=== PATIENT | female | born 1990 | race Two or more races ===

== ENCOUNTER 2018-08-31 00:43 | Emergency (ER) | payer SELFPAY ==
[2018-08-31 01:01] VITALS: BP 148/97; PULSE 75; TEMP 97.4; BMI 29.2
--- NOTE | 2018-08-31 02:29 | PDOC ---
*Physical Exam - Vital Signs Last Vital Signs Temp Pulse Resp BP Pulse Ox 97.4 F L 75 20 148/97 99 08/31/18 00:56 08/31/18 00:56 08/31/18 00:56 08/31/18 00:56 08/31/18 00:56 Medical Decision Making - Medical Decision Making 08/31/18 02:28 Patient seen by the advanced practice provider under my direct supervision. Ancillary testing reviewed as necessary. I agree with plan as outlined by the advanced practice provider. *DC/Admit/Observation/Transfer Diagnosis at time of Disposition: Otitis media Qualifiers: Otitis media type: suppurative Chronicity: acute Laterality: right Recurrence: non-recurrent Spontaneous tympanic membrane rupture: without spontaneous rupture Qualified Code(s): H66.001 - Acute suppurative otitis media without spontaneous rupture of ear drum, right ear - Discharge Dispostion Disposition: HOME - Prescriptions Prescriptions: Amoxicillin/Potassium Clav [Augmentin 875-125 Tablet] 1 each PO BID #20 tablet - Referrals - Patient Instructions Printed Discharge Instructions: Middle Ear Infection Additional Instructions: You may take ibuprofen every 6 hours as needed for pain Take Augmentin as prescribed Follow-up with your doctor in 2 days Return to the emergency room if symptoms worsen. - Post Discharge Activity Forms/Work/School Notes: Back to Work
[2018-08-31] MEDS ORDERED: IBUPROFEN 400 MG TABLET (FP) PO ONE ×2 (02:32→03:08)
--- NOTE | 2018-08-31 02:32 | PDOC ---
History of Present Illness - General Chief Complaint: Ear Problem Stated Complaint: EAR PAIN & SORETHROAT Time Seen by Provider: 08/31/18 02:23 History Source: Patient - History of Present Illness Initial Comments: 08/31/18 02:48 28 year old Complaining of right ear pain and throat pain started today. patient has been having URI symptoms for the last 5 days.Denies fevers/chills, nasal congestion, cough, nausea, vomiting, diarrhea, patient reports that she just came back from vacation and has been swimming in the pool. No past medical history 08/31/18 02:59 Past History - Past Medical History Allergies/Adverse Reactions: Allergies Allergy/AdvReac Type Severity Reaction Status Date / Time No Known Allergies Allergy Verified 06/07/12 17:09 Home Medications: Ambulatory Orders Diphenhydramine [Benadryl] 50 mg PO Q8H #30 capsule 06/07/12 EPINEPHrine (EPI-PEN 0.3MG) [Epipen 0.3MG -] 0.3 mg IM ASDIR #2 pens 06/07/12 Fexofenadine HCl 180 mg PO DAILY #30 tablet 06/07/12 Ranitidine HCl [Zantac] 150 mg PO DAILY #30 tablet 06/07/12 Amoxicillin/Potassium Clav [Augmentin 875-125 Tablet] 1 each PO BID #20 tablet 08/31/18 Ibuprofen 600 mg PO QID PRN #20 tablet 08/31/18 - Suicide/Smoking/Psychosocial Hx Smoking Status: No Smoking History: Never smoked Number of Cigarettes Smoked Daily: 0 Information on smoking cessation initiated: No Hx Alcohol Use: Yes (Social) Drug/Substance Use Hx: No Review of Systems - Review of Systems Able to Perform ROS?: Yes Is the patient limited Turkmen proficient: No HEENTM: Yes: Ear Pain, Throat Pain *Physical Exam - Vital Signs Last Vital Signs Temp Pulse Resp BP Pulse Ox 97.4 F L 75 20 148/97 99 08/31/18 00:56 08/31/18 00:56 08/31/18 00:56 08/31/18 00:56 08/31/18 00:56 - Physical Exam General Appearance: Yes: Appropriately Dressed HEENT: positive: Pharynx Normal, TM Bulging (with effusion and erythema to right tm) Neck: negative: Lymphadenopathy (R), Lymphadenopathy (L) Respiratory/Chest: positive: Lungs Clear, Normal Breath Sounds Musculoskeletal: positive: Normal Inspection Extremity: positive: Normal Capillary Refill, Normal Inspection, Normal Range of Motion Integumentary: positive: Normal Color, Dry, Warm Neurologic: positive: Fully Oriented, Alert, Normal Mood/Affect Moderate Sedation - Procedure Monitoring Vital Signs: Procedure Monitoring Vital Signs Temperature 97.4 F L 08/31/18 00:56 Pulse Rate 75 08/31/18 00:56 Respiratory Rate 20 08/31/18 00:56 Blood Pressure 148/97 08/31/18 00:56 O2 Sat by Pulse Oximetry (%) 99 08/31/18 00:56 Medical Decision Making - Medical Decision Making 08/31/18 02:57 Otitis media: p: Pain control Antibiotics *DC/Admit/Observation/Transfer Diagnosis at time of Disposition: Otitis media Qualifiers: Otitis media type: suppurative Chronicity: acute Laterality: right Recurrence: non-recurrent Spontaneous tympanic membrane rupture: without spontaneous rupture Qualified Code(s): H66.001 - Acute suppurative otitis media without spontaneous rupture of ear drum, right ear - Discharge Dispostion Disposition: HOME - Prescriptions Prescriptions: Amoxicillin/Potassium Clav [Augmentin 875-125 Tablet] 1 each PO BID #20 tablet Ibuprofen 600 mg PO QID PRN #20 tablet PRN Reason: Pain - Referrals - Patient Instructions Printed Discharge Instructions: Middle Ear Infection Additional Instructions: You may take ibuprofen every 6 hours as needed for pain Take Augmentin as prescribed Follow-up with your doctor in 2 days Return to the emergency room if symptoms worsen. - Post Discharge Activity Forms/Work/School Notes: Back to Work
[2018-08-31] MEDS ORDERED: AMOX TR/POT CLAV 875MG/125MG TABLETS (FP) PO ONE (02:33)
[2018-08-31] MEDS ORDERED: AMOX TR/POT CLAV 875MG/125MG TABLETS (FP) ONE (03:07)
== END 2018-08-31 03:24 | disposition home or self-care (01) ==
LOC: JER 00:43
DX: H66.001 Acute suppurative otitis media without spontaneous rupture of ear drum, right ear (principal)
CPT/HCPCS: 99281-25

== ENCOUNTER 2019-04-09 23:07 | Emergency (ER) | payer OTHER ==
[2019-04-09 23:14] VITALS: BMI 27.8
[2019-04-09] MEDS ORDERED: hydrOXYzine HCL 25 MG TABLET (FP) PO ONE (23:35)
--- NOTE | 2019-04-09 23:41 | PDOC ---
History of Present Illness - General Chief Complaint: Allergic Reaction Stated Complaint: ALLERGY Time Seen by Provider: 04/09/19 23:22 History Source: Patient Exam Limitations: No Limitations - History of Present Illness Initial Comments: 04/09/19 23:41 HISTORY OF PRESENT ILLNESS: This is a 28-year-old woman past medical history of urticaria presents emergency department for evaluation of wheals present to bilateral arms for the past 2 days. Patient has been taking Swathi with minimal relief of symptoms. Patient has been in contact with an auto body repairman and has an appointment on of this week. Patient denies any throat itching or difficulty breathing. No recent travel or sick contacts. PAST MEDICAL HISTORY: urticaria SURGICAL HISTORY: Denies ALLERGIES: No known drug allergies REVIEW OF SYSTEMS General/Constitutional: Denies fever or chills. Denies weakness, weight change. HEENT: Denies change in vision. Denies ear pain or discharge. Denies sore throat. Cardiovascular: Denies chest pain or shortness of breath. Respiratory: Denies cough, wheezing, or hemoptysis. Gastrointestinal: Denies nausea, vomiting, diarrhea or constipation. Denies rectal bleeding. Genitourinary: Denies dysuria, frequency, or change in urination. Musculoskeletal: Denies joint or muscle swelling or pain. Denies neck or back pain. Skin and breasts: see HPI Neurologic: Denies headache, vertigo, loss of consciousness, or loss of sensation. Psychiatric: Denies depression or anxiety. Endocrine: Denies increased thirst. Denies abnormal weight change. Hematologic/Lymphatic: Denies anemia, easy bleeding, or history of blood clots. Allergic/Immunologic: Denies hives or skin allergy. Denies latex allergy. PHYSICAL EXAM General Appearance: Well-appearing, appropriately dressed. No apparent distress , no intoxication. HEENT: EOMI, PERRLA, normal ENT inspection, normal voice, TMs normal, pharynx normal. No conjunctival pallor. No photophobia, scleral icterus. Neck: Supple. Trachea midline. No tenderness, rigidity, carotid bruit, stridor , lymphadenopathy, or thyromegaly. Respiratory/Chest: Lungs CTAB. No shortness of breath, chest tenderness, respiratory distress, accessory muscle use. No crackles, rales, rhonchi, stridor , wheezing, dullness Cardiovascular: RRR. S1, S2. No JVD, murmur, bradycardia, tachycardia. Integumentary: Wheals present to b/l upper extremities worse over shoulders. Neurologic: lifts and cranes inspector II-XII intact. Fully oriented, alert. Appropriate mood/affect. Motor strength 5/5. No appreciable EOM palsy, facial droop or sensory deficit. Past History - Past Medical History Allergies/Adverse Reactions: Allergies Allergy/AdvReac Type Severity Reaction Status Date / Time No Known Allergies Allergy Verified 06/07/12 17:09 Home Medications: Ambulatory Orders Diphenhydramine [Benadryl] 50 mg PO Q8H #30 capsule 06/07/12 EPINEPHrine (EPI-PEN 0.3MG) [Epipen 0.3MG -] 0.3 mg IM ASDIR #2 pens 06/07/12 Fexofenadine HCl 180 mg PO DAILY #30 tablet 06/07/12 Ranitidine HCl [Zantac] 150 mg PO DAILY #30 tablet 06/07/12 Amoxicillin/Potassium Clav [Augmentin 875-125 Tablet] 1 each PO BID #20 tablet 08/31/18 Ibuprofen 600 mg PO QID PRN #20 tablet 08/31/18 Triamcinolone 0.5% Ointment [Aristocort 0.5% Ointment -] 1 applic TP BID #1 tube 04/09/19 - Psycho Social/Smoking Cessation Hx Smoking Status: No Smoking History: Never smoked Number of Cigarettes Smoked Daily: 0 Hx Alcohol Use: Yes ("Ocasional") Drug/Substance Use Hx: No *Physical Exam - Vital Signs Last Vital Signs Temp Pulse Resp BP Pulse Ox 97.4 F L 88 20 130/74 97 04/09/19 23:09 04/09/19 23:09 04/09/19 23:09 04/09/19 23:09 04/09/19 23:09 Medical Decision Making - Medical Decision Making 04/09/19 23:43 A/P: 28-year-old woman with urticaria No stridor noted Oropharynx is unremarkable. No drooling present. Lungs clear to auscultation bilaterally. Hydroxyzine 25 mg orally now Discharge home with prescription for triamcinolone ointment We'll defer oral steroids given patient is to be evaluated by auto body repairman in less than 7 days. Patient has been given strict return precautions. I discussed the physical exam findings, ancillary test results and final diagnoses with the patient. I answered all of the patient's questions. The patient was satisfied with the care received and felt comfortable with the discharge plan and treatment plan. The patient will call their primary care physician within 24 hours to arrange follow-up and will return to the Emergency Department with any new, persistent or worsening symptoms. Portions of this note have been documented using voice recognition software. As a result, errors may occur in the farm implement engine mechanic process. Effort has been made to correct all grammatical and farm implement engine mechanic error, but some may have been missed. Discharge - Discharge Information Problems reviewed: Yes Clinical Impression/Diagnosis: Urticaria Condition: Stable Disposition: HOME - Admission No - Additional Discharge Information Prescriptions: Triamcinolone 0.5% Ointment [Aristocort 0.5% Ointment -] 1 applic TP BID #1 tube - Follow up/Referral - Patient Discharge Instructions Additional Instructions: Rest, keep cool and dry- avoid strenuous activity or hot /humid environments May use Benadryl at night for antihistamine, Zyrtec/ Swathi or Claritin for daytime antihistamine use to help with itching May use triamcinolone cream on all areas except face Return to the emergency department for any new or worsening symptoms. Make appointment with consulting senior practice director for evaluation when possible - Post Discharge Activity
[2019-04-10] MEDS ORDERED: hydrOXYzine HCL 25 MG TABLET (FP) PO ONE (00:13)
[2019-04-10 01:09] VITALS: BP 122/75; PULSE 82; TEMP 97.6
== END 2019-04-10 00:41 | disposition home or self-care (01) ==
LOC: JER 23:07
DX: L50.9 Urticaria, unspecified (principal)
CPT/HCPCS: 99282-25

== ENCOUNTER 2021-06-20 07:36 | Emergency (ER) | payer OTHER ==
[2021-06-20 07:56] VITALS: PULSE 89; BMI 27.8
[2021-06-20 09:26] LABS: HEMATOCRIT 34.8 % (32.4-45.2); MCH 29.6 pg (25.7-33.7); MCHC 34.6 g/dl (32.0-36.0); MEAN CELL VOLUME 85.5 fl (80-96); MEAN PLT VOLUME 7.1 fl (7.5-11.1); PLATELET COUNT 465 10^3/uL (134-434); RBC 4.07 M/mm3 (3.60-5.2); RDW 13.2 % (11.6-15.6); WHITE BLOOD COUNT 10.7 K/mm3 (4.0-10.0)
[2021-06-20 09:28] LABS: EPI CELLS 36 /uL (0-25.1); HYALINE CASTS 4 /uL (0-3.1); PH,URINE 5.5 (5.0-8.0); URINE APPEARANCE CLEAR; URINE BACTERIA 100 /uL (0-1359); URINE BILIRUBIN NEGATIVE (NEGATIVE); URINE COLOR YELLOW; URINE GLUCOSE (UA) NEGATIVE (NEGATIVE); URINE KETONE NEGATIVE (NEGATIVE); URINE LEUK ESTERASE NEGATIVE (NEGATIVE); URINE NITRITE NEGATIVE (NEGATIVE); URINE PROTEIN NEGATIVE (NEGATIVE); URINE RBC 21 /uL (0-23.9); URINE UROBILINOGEN 0.2 mg/dL (0.2-1.0); URINE WBC 4 /uL (0-25.8)
[2021-06-20 10:03] LABS: CALCIUM 9.2 mg/dL (8.5-10.1)
[2021-06-20 10:04] LABS: ALBUMIN 3.5 g/dl (3.4-5.0); BLOOD UREA NITROGEN 4.8 mg/dL (7-18)
[2021-06-20 10:07] LABS: CREATININE 0.6 mg/dL (0.55-1.3)
[2021-06-20 10:09] LABS: BILIRUBIN,TOTAL 0.4 mg/dL (0.2-1); TOT PROT 7.2 g/dl (6.4-8.2)
[2021-06-20 11:23] VITALS: BP 102/57; TEMP 98.2
== END 2021-06-20 12:09 | disposition home or self-care (01) ==
LOC: JER 07:36
DX: O20.0 Threatened abortion (principal); Z3A.09 9 weeks gestation of pregnancy
CPT/HCPCS: 36415; 76817-TC; 80053; 81003; 84702; 85027; 86850; 86900; 86901; 87086; 99284-25

== ENCOUNTER 2021-09-24 13:50 | Emergency (ER) | payer OTHER ==
[2021-09-24 14:03] VITALS: BMI 28.3
[2021-09-24] MEDS ORDERED: ACETAMINOPHEN 325 MG TABLET (FP) PO ONE (14:54)
[2021-09-24] MEDS ORDERED: ACETAMINOPHEN 325 MG TABLET (FP) ONE (14:59)
[2021-09-24 16:23] VITALS: BP 115/65; PULSE 97; TEMP 98
== END 2021-09-24 18:30 | disposition home or self-care (01) ==
LOC: JER 13:50
DX: O26.892 Other specified pregnancy related conditions, second trimester (principal); R10.9 Unspecified abdominal pain; M79.642 Pain in left hand; M79.661 Pain in right lower leg; M79.662 Pain in left lower leg; Z34.90 Encounter for supervision of normal pregnancy, unspecified, unspecified trimester
CPT/HCPCS: 76815-TC; 99284-25

== ENCOUNTER 2021-11-22 17:15 | Inpatient (IN) | payer OTHER ==
[2021-11-22] MEDS ORDERED: BETAMET ACET/BETAMET NA PH 30 MG/5 ML VIAL ONE (18:05)
[2021-11-22] MEDS ORDERED: AMPICILLIN SODIUM 2 GM VIAL ONE (18:09)
[2021-11-22] MEDS ORDERED: BETAMET ACET/BETAMET NA PH 30 MG/5 ML VIAL IM ONE ×2 (18:12→18:15)
[2021-11-22] MEDS ORDERED: ELECTROLYTE-148 SOLN 1,000 ML IV SCH ×2 (18:15)
[2021-11-22] MEDS ORDERED: MAGNESIUM 4GM/H20 - 4 GM/100 ML IVPB IVPB SCH (18:15)
[2021-11-22] MEDS ORDERED: AMPICILLIN SODIUM 2 GM VIAL IVPB ONE (18:15)
[2021-11-22 18:23] VITALS: BMI 30.9
[2021-11-22] MEDS ORDERED: MAGNESIUM 4GM/H20 - 4 GM/100 ML IVPB IVPB ONE (18:26)
[2021-11-22 18:54] LABS: BASO % 0.3 % (0-2.0); EOS % 0.8 % (0-4.5); HEMATOCRIT 33.2 % (32.4-45.2); HEMOGLOBIN 11.3 GM/dL (10.7-15.3); LYMPH % 26.3 % (8-40); MCH 29.1 pg (25.7-33.7); MCHC 33.9 g/dl (32.0-36.0); MEAN CELL VOLUME 85.8 fl (80-96); MEAN PLT VOLUME 7.6 fl (7.5-11.1); NEUT % 67.6 % (42.8-82.8); PLATELET COUNT 401 10^3/uL (134-434); RBC 3.87 M/mm3 (3.60-5.2); RDW 13.9 % (11.6-15.6); WHITE BLOOD COUNT 8.6 K/mm3 (4.0-10.0)
[2021-11-22 19:04] LABS: INR 0.93 (0.83-1.09); PROTHROMBIN TIME (PATIENT) 10.7 SEC (9.7-13.0)
[2021-11-22 19:07] LABS: ACTIVATED PTT 28.6 SECONDS (25.2-36.5)
[2021-11-22 19:10] LABS: CALCIUM 8.8 mg/dL (8.5-10.1)
[2021-11-22 19:11] LABS: BLOOD UREA NITROGEN 5.6 mg/dL (7-18)
[2021-11-22 19:14] LABS: CREATININE 0.6 mg/dL (0.55-1.3)
[2021-11-22] MEDS ORDERED: AZITHROMYCIN IVPB 500 MG in DEXTROSE 5%-WATER - 250 ML IVPB ONE (20:15)
[2021-11-22] MEDS ORDERED: MAGNESIUM SULFATE 20GM/500ML - 20 GM/500 ML INFUS.BAG ONE (20:18)
[2021-11-22] MEDS ORDERED: ACETAMINOPHEN INJECTION 100 ML IVPB ONE (21:45)
[2021-11-22] MEDS ORDERED: ACETAMINOPHEN 1000 MG/100 ML BAG IVPB ONE (22:00)
[2021-11-23] MEDS ORDERED: AMPICILLIN - 2 GM in SODIUM CHLORIDE 100 ML IVPB SCH (01:30)
[2021-11-23] MEDS ORDERED: MAGNESIUM IVPB ONE (01:30)
[2021-11-23] MEDS ORDERED: AMPICILLIN SODIUM 1 GM VIAL ONE (01:50)
[2021-11-23] MEDS ORDERED: AMPICILLIN - 1 GM in SODIUM CHLORIDE 100 ML IVPB SCH (02:55)
[2021-11-23 05:44] VITALS: BP 123/65; PULSE 95; TEMP 97.6
== END 2021-11-23 05:15 | disposition short-term general hospital (02) | DRG 566 ==
LOC: JDEL 17:15 → JLDR 17:50
PROVIDERS: ADMIT Obstetrics & Gynecology; ATTEND Obstetrics & Gynecology
DX: O42.113 Preterm premature rupture of membranes, onset of labor more than 24 hours following rupture, third trimester (principal); Z3A.31 31 weeks gestation of pregnancy
CPT/HCPCS: 36415; 80048; 82962; 85025; 85610; 85730; 86780; 86850; 86900; 86901; 96372; C9803-CS; U0003; U0005